=== PATIENT | male | born 1940 | race Caucasian/White ===

== ENCOUNTER → 2016-07-01 | Outpatient (CLI) | payer MEDICARE | END | disposition home or self-care (01) | LOC: GMAM 15:26 | PROVIDERS: ATTEND Family Medicine | DX: M70.20 Olecranon bursitis, unspecified elbow (principal) ==

== ENCOUNTER → 2016-09-21 | Outpatient (CLI) | payer MEDICARE | END | disposition home or self-care (01) | LOC: GMAM 10:18 | PROVIDERS: ATTEND Family Medicine | DX: E55.9 Vitamin D deficiency, unspecified (principal) ==

== ENCOUNTER → 2016-11-19 | Outpatient (CLI) | payer MEDICARE ==
--- NOTE | 2016-11-22 08:14 | RAD ---
EXAM DESCRIPTION: Right foot, 3 views CLINICAL HISTORY: Fracture. 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 Mild interphalangeal osteoarthritis No advanced osteoarthritis of the midfoot. No inflammatory arthritis No fracture of the tarsal bones Atherosclerotic vascular calcification Electronically signed by: Gab Lyons MD 11/22/2016 8:13 AM CDT
== END | disposition home or self-care (01) ==
LOC: RAD 13:10
PROVIDERS: ATTEND Internal Medicine Nephrology
DX: M19.071 Primary osteoarthritis, right ankle and foot (principal)

== ENCOUNTER → 2017-01-11 | Outpatient (CLI) | payer MEDICARE | END | disposition home or self-care (01) | LOC: GMAM 11:00 | PROVIDERS: ATTEND Family Medicine | DX: R97.20 Elevated prostate specific antigen [PSA] (principal); E55.9 Vitamin D deficiency, unspecified; D48.9 Neoplasm of uncertain behavior, unspecified ==

== ENCOUNTER → 2017-01-13 | Outpatient (CLI) | payer MEDICARE | END | disposition home or self-care (01) | LOC: GMAM 14:54 | PROVIDERS: ATTEND Family Medicine | DX: N18.9 Chronic kidney disease, unspecified (principal); D63.1 Anemia in chronic kidney disease ==

== ENCOUNTER 2017-01-29 20:23 | Emergency (ER) | payer MEDICARE ==
[2017-01-29] MEDS ORDERED: LEVALBUTEROL NEBS 1.25 MG/3 ML VIAL NEB ONE (20:42)
[2017-01-29] MEDS ORDERED: IPRATROPIUM BROMIDE NEBS 0.5 MG/2.5 ML VIAL NEB ONE ×2 (20:42→22:16)
[2017-01-29] MEDS ORDERED: cefTRIAXone SODIUM 1 GM in SODIUM CHL 0.9% 50ML MIN-BAG+ 50 ML IVPB ONE (20:51)
[2017-01-29] MEDS ORDERED: AZITHROMYCIN IV 500 MG in SODIUM CHLORIDE 0.9% 250ML 250 ML IVPB ONE (20:51)
[2017-01-29] MEDS ORDERED: METOPROLOL TARTRATE 25 MG TAB PO ONE (20:52)
--- NOTE | 2017-01-29 21:14 | RAD ---
EXAM DESCRIPTION: Chest,1 View CLINICAL HISTORY: 76 years, Male, shortness of breath COMPARISON: Chest x-ray dated 05/16/2014 FINDINGS: A single frontal chest radiograph was performed. A bipolar pacemaker and AICD has two intact leads. The cardiac silhouette is enlarged and the pulmonary vessels are hazy. The LEFT costophrenic sulcus is blunted by a LEFT pleural effusion. Adjacent airspace opacity is noted. The LEFT hemidiaphragm is mildly elevated. The RIGHT costophrenic sulcus is sharp. The aortic arch is calcified. The trachea, soft tissues and bony structures are unremarkable. Findings are similar to the prior study although the LEFT hemidiaphragm is now elevated. IMPRESSION: Cardiomegaly with pulmonary edema and a small LEFT pleural effusion is suspected. Electronically signed by: Nayana Rios MD 01/29/2017 9:13 PM CDT
[2017-01-29] MEDS ORDERED: FUROSEMIDE INJ 40 MG/4 ML VIAL IV ONE (21:16)
[2017-01-29] MEDS ORDERED: ACETAMINOPHEN 325 MG TAB PO ONE (21:18)
[2017-01-29] MEDS ORDERED: cefTRIAXone SODIUM 1 GM VIAL ONE (21:21)
[2017-01-29] MEDS ORDERED: SODIUM CHL 0.9% 50ML MIN-BAG+ 50 ML IVPB ONE (21:22)
[2017-01-29] MEDS ORDERED: SODIUM CHLORIDE 0.9% 250ML 250 ML ONE (22:08)
[2017-01-29] MEDS ORDERED: AZITHROMYCIN IV 500 MG VIAL IVPB ONE (22:08)
[2017-01-29] MEDS ORDERED: ASPIRIN TABLET 325 MG TAB PO ONE (22:12)
--- NOTE | 2017-01-29 22:24 | ED.PDOC ---
History of Present Illness - General Chief Complaint: Respiratory Problem Stated Complaint: shortness of breath Time Seen by Provider: 01/29/17 20:33 Source: patient, family Exam Limitations: clinical condition - History of Present Illness Initial Comments: The patient is a 76-year-old male with a history of insulin dependent diabetes, coronary artery disease, end-stage renal disease, COPD presenting with 3 days of progressive shortness of breath and the development of fever and generalized weakness today. He has had a productive cough for the last couple of days. The patient is a dialysis patient and did receive dialysis yesterday. Upon arrival here his oxygen saturations were in the high 80s however his pulse was in the 120s due to sinus tachycardia with frequent PACs and PVCs. He has not had any chest pain or back pain whatsoever. His lungs are grossly wet. He has apparently had a purulent sputum not a clear sputum for the most part for the last 2 days. He is febrile here with a temperature of 101. He is in moderate respiratory distress. He is showing some retractions. He is breathing rapidly. He is alert and oriented. He is able to give most of his own medical history. he does feel more short of breath with lying back. Severity: severe Improving Factors: nothing Worsening Factors: movement Associated Symptoms: cough, fever/chills, loss of appetite, malaise, shortness of breath, weakness Allergies/Adverse Reactions: Allergies Penicillins Allergy (Verified 01/29/17 20:52) Sulfa Antibiotics Allergy (Verified 01/29/17 20:52) Home Medications: Ambulatory Orders Amlodipine Besylate 5 mg PO DAILY 07/19/13 Aspirin [Aspirin 81] 325 mg PO DAILY 07/19/13 Metoprolol Succinate [Toprol Xl] 50 mg PO DAILY 07/19/13 Furosemide [Lasix] 40 mg PO DAILY 02/20/14 Insulin Glulisine [Apidra] 100 unit IJ PRN PRN 02/20/14 Clopidogrel Bisulfate [Plavix] 75 mg PO QD 05/16/14 Review of Systems - Review of Systems Constitutional: States: fever, malaise, weakness EENTM: States: no symptoms reported Respiratory: States: cough, orthopnea, short of breath, wheezing Cardiology: States: edema Gastrointestinal/Abdominal: States: no symptoms reported Genitourinary: States: no symptoms reported Musculoskeletal: States: no symptoms reported Skin: States: no symptoms reported Neurological: States: weakness - generalized Endocrine: States: no symptoms reported All other Systems: No Change from Baseline Past Medical History (General) - Patient Medical History Hx Stroke: No Hx Cardiac Disorders: Yes - CA 2013 Hx Congestive Heart Failure: No Hx Hypertension: Yes Hx Diabetes: Yes Surgical History: other - Vaccination History Hx Tetanus, Diphtheria Vaccination: No Hx Influenza Vaccination: Yes Hx Pneumococcal Vaccination: Yes - Social History Hx Tobacco Use: Yes Hx Alcohol Use: No - Female History Patient is a Female of Child Bearing Age (10 -59 yrs old): No Patient : No Family Medical History - Family History Mother Living Status: Hx Family Stroke: Yes Physical Exam - Physical Exam General Appearance: Alert, Obvious distress, Ill Appearing Eye Exam: bilateral normal Ears, Nose, Throat: other - he does have decreased hearing bilaterally. Oropharynx is clear. Nares are clear. Neck: full range of motion Respiratory: chest non-tender, respiratory distress, accessory muscle use, crackles - diffuse in the lower lung canales, rhonchi - scattered Cardiovascular/Chest: tachycardia - tachycardic and irregular due to sinus tachycardia with frequent PVCs and PACs., other - he does have +1 edema bilaterally. Peripheral Pulses: radial,right: 2+, radial,left: 2+, dorsalis pedis,right: 1+, dorsalis pedis,left: 1+ Gastrointestinal/Abdominal: non tender, soft Rectal Exam: deferred Back Exam: no CVA tenderness, no vertebral tenderness Extremity: normal range of motion, no calf tenderness, normal capillary refill, pedal edema, other - dialysis graft in the right upper extremity Neurologic: stamping mill tender II-XII nml as tested - see above, alert, oriented x 3 Skin Exam: pallor Comments: Vital Signs - 24 hr 01/29/17 20:52 Temperature 101 F H Pulse Rate [ 126 H left] Respiratory 28 H Rate Blood Pressure 117/64 [left] O2 Sat by Pulse 92 L Oximetry Progress - Progress Progress: 01/29/17 22:29 the patient is a 76-year-old male presenting in very poor condition, in respiratory distress. The patient has an acute CHF exacerbation with some pulmonary edema. He has largely managed to hold his oxygenation to low-normal levels even without supplementation. He has been receiving some BiPAP here for treatment of that as well as some supplemental oxygen. He does appear to be breathing a little more easily. He did also receive a nebulizer treatment with Xopenex and ipratropium. Albuterol was avoided due to tachycardia. He did receive one small dose of oral metoprolol at 12.5 mg. He also received a dose of aspirin. I am not giving heparin or Lovenox to this patient at this time as I do not believe he is having thrombotic ischemia and is more likely demand ischemia with poor clearance due to poor renal failure. repeating his EKG and cardiac enzymes may be worthwhile. The patient is febrile and has had a purulent productive sputum. He is being given one dose of Rocephin and azithromycin. He does have an elevated lactic acid however this is in the face of end-stage renal disease. I do not believe that he is septic at this point and in fact in giving him 1 dose of IV Lasix for the pulmonary edema. He has not received any steroids to this point. I believe the patient will need dialysis from a CHF standpoint. The patient is being transferred for higher level of care. Critical care time spent on this patient 40 minutes. - Results/Orders Results/Orders: Laboratory Tests 01/29/17 01/29/17 01/29/17 21:00 21:00 21:05 WBC 9.0 RBC 3.63 L Hgb 12.3 L Hct 37.5 L MCV 103.4 H MCH 33.8 H MCHC 32.9 L RDW 16.5 H Plt Count 167 MPV 9.6 Absolute Neuts (auto) 7.80 H Absolute Lymphs (auto) 0.50 L Absolute Monos (auto) 0.60 Absolute Eos (auto) 0.00 Absolute Basos (auto) 0.10 Neutrophils % 86.9 H Lymphocytes % 5.8 L Monocytes % 6.3 Eosinophils % 0.0 L Basophils % 1.0 Sodium 136 Potassium 4.5 Chloride 90 L Carbon Dioxide 30 Anion Gap 20.5 H BUN 51 H Creatinine 4.38 H BUN/Creatinine Ratio 11.6 Random Glucose 170 H Serum Osmolality 289.6 Lactic Acid 3.6 H* Calcium 8.8 Magnesium 2.4 Total Bilirubin 1.1 H AST 71 H ALT 58 Alkaline Phosphatase 83 Creatine Kinase 71 CK-MB (CK-2) 1.4 CK-MB (CK-2) % Not Reportable Troponin I 0.24 H* B-Natriuretic Peptide > 5000.0 H* Serum Total Protein 8.0 Albumin 4.2 Globulin 3.8 H Albumin/Globulin Ratio 1.1 chest x-rays consistent with overt fluid overload. There is possibly a left lower lobe infiltrate as well. Telemetry shows a sinus tachycardia with frequent PACs and PVCs. EKG shows left axis deviation which is not new from 2015. There is also old T-wave inversion in aVL. There is a small right bundle branch noted that is new. He does have fairly flattened T waves and leads V2 and V3 with possible mild inversion. This also appears to be old. There is mild ST segment depression in V6 which was not noted in 2015. Of note he has had a julito landon heart attacks since that time. Departure - Departure Clinical Impression: End stage renal disease Pulmonary edema Qualifiers: Chronicity: acute Qualified Code(s): J81.0 - Acute pulmonary edema Pneumonia Qualifiers: Pneumonia type: due to unspecified organism Laterality: left Lung location: lower lobe of lung Qualified Code(s): J18.1 - Lobar pneumonia, unspecified organism Disposition: Transfer to Hospital Referrals: Gab Anton MD [Primary Care Provider] - 1-2 Weeks Home Medications: Ambulatory Orders Amlodipine Besylate 5 mg PO DAILY 07/19/13 Aspirin [Aspirin 81] 325 mg PO DAILY 07/19/13 Metoprolol Succinate [Toprol Xl] 50 mg PO DAILY 07/19/13 Furosemide [Lasix] 40 mg PO DAILY 02/20/14 Insulin Glulisine [Apidra] 100 unit IJ PRN PRN 02/20/14 Clopidogrel Bisulfate [Plavix] 75 mg PO QD 05/16/14 Transfer to Outside Facility - Transfer Information Accepting Provider:: dr mcrae Accepting Facility: [facility] Reason for Transfer: specialized care not available
[2017-01-29 22:48] VITALS: O2SAT 99
[2017-01-29 22:52] VITALS: BP 120/56; TEMP 101.6
== END 2017-01-29 23:15 | disposition short-term general hospital (02) ==
LOC: ER 20:23
DX: J18.1 Lobar pneumonia, unspecified organism (principal); J81.0 Acute pulmonary edema; I12.0 Hypertensive chronic kidney disease with stage 5 chronic kidney disease or end stage renal disease; E11.22 Type 2 diabetes mellitus with diabetic chronic kidney disease; N18.6 End stage renal disease; Z99.2 Dependence on renal dialysis; Z79.4 Long term (current) use of insulin; Z79.84 Long term (current) use of oral hypoglycemic drugs; J44.9 Chronic obstructive pulmonary disease, unspecified; I25.2 Old myocardial infarction; Z88.0 Allergy status to penicillin; Z88.2 Allergy status to sulfonamides; Z79.82 Long term (current) use of aspirin
CPT/HCPCS: 36415; 71010; 80053; 82550; 82553; 83605; 83735; 83880; 84484; 85025; 85610; 85730; 87040; 87502; 93005; 94640; 94660; J0456; J0696; J1940; J7050; J7614; J7644